=== PATIENT | male | born 1975 | race Caucasian/White ===

== ENCOUNTER 2019-10-15 21:00 | Emergency (ER) | payer OTHER, SELFPAY ==
--- NOTE | ~2019-10-15 | XR_ITS ---
EXAMINATION: XR foot LT min 3V EXAM DATE: 10/15/2019 21:25 INDICATION: Left foot, first metatarsal pain. No known recent injury. Surgery 10 years ago. TECHNIQUE: Left foot dorsoplantar, lateral and oblique projections obtained and reviewed. There is n o prior study for comparison. FINDINGS: Left metatarsal bones unremarkable. There are no acute fractures or dislocations identifi ed. There is no subcutaneous gas. The soft tissue is unremarkable. Surgical change, probable buni onectomy. There is a screw in the first metatarsal bone, with about 1 mm smooth uniform lucency surro unding it, could indicate some loosening. Infected hardware not entirely excludable. IMPRESSION: Surgical changes from left-sided bunionectomy with uniform thin lucency surrounding the f irst metatarsal screw, may indicate loosening but infection not entirely excludable. Follow-up can be obtained if symptoms persist. Reviewed, dictated and finalized at location A. IMPRESSION: Surgical changes from left-sided bunionectomy with uniform thin sidra ency surrounding the first metatarsal screw, may indicate loosening but infecti on not entirely excludable. Follow-up can be obtained if symptoms persist.
[2019-10-15 21:09] VITALS: BP 113/91; PULSE 92; RESP 16; TEMP 36.7; O2SAT 100
--- NOTE | 2019-10-15 21:35 | ED.LOWEXIN ---
HPI - Extremity Injury (Lower) General Chief Complaint: Extremity Injury, Lower Stated Complaint: toe pain Time Seen by Provider: 10/15/19 21:33 Source: patient Mode of arrival: ambulatory Limitations: no limitations History of Present Illness HPI Narrative: A 44 y/o male presents to the ED with c/o left foot pain and swelling. Pt states that the left foot pain started 2 days ago and worsened at 1400 today. He describes the pain as a pulsating. Pt does not note any fall or injury that could have caused the left foot swelling and pain. He denies fever, numbness, and rash and has a PMHx of gout and left foot surgery. Pt took Indomethacin for the left foot pain and swelling with no relief. MD complaint: foot injury (Left pain and swelling) Onset (ago): day(s) (2) Injury: Left: foot Associated symptoms: swelling Other symptoms: none Treatments prior to arrival: other (Indomethacin) Related Data Allergies Allergy/AdvReac Type Severity Reaction Status Date / Time PANTOPRAZOLE SODIUM Allergy Severe Anaphylactic Uncoded 10/15/19 21:32 Shock Review of Systems Review of Systems: Narrative: CONSTITUTIONAL: Denies fever, chills, or sweats. SKIN: Denies rash or itching. MUSCULOSKELETAL: Denies back pain, joint pain, or myalgia. Reports left foot pain and swelling. NEUROLOGIC: Denies headache, numbness, or weakness. All systems reviewed & are unremarkable except as noted in HPI and below PMFSH Past Medical History Medical History (Updated 10/15/19 @ 23:32 by Yari Miller MD) Anxiety Back injury Bipolar disorder Cellulitis Chronic back pain Diverticulitis Gout HTN (hypertension) Hyperlipidemia Migraine MRSA (methicillin resistant Staphylococcus aureus) Renal cell carcinoma Sleep apnea Uses continuous positive airway pressure (CPAP) ventilation at home Surgical History Surgical History (Updated 10/15/19 @ 21:49 by Audra Barrett) H/O right nephrectomy History of foot surgery Left Social History Social History (Updated 10/15/19 @ 21:50 by Audra Barrett) Smoking status: Never smoker Second hand tobacco smoke exposure: Yes Gender identity (if verbalized by the patient): Male Exam Narrative: Exam Narrative: GENERAL: Anxious-appearing, well-nourished, and in no acute distress. HEAD: Normocephalic, atraumatic. EYES: PERRLA and EOMI. ENT: Nares clear, no rhinorrhea or epistaxis. Mucous membranes moist. NECK: Supple. CHEST: Clear to auscultation. No respiratory distress. HEART: Regular rate and rhythm. No murmur heard. Normal peripheral pulses. ABDOMEN: Soft, nontender, nondistended, normal active bowel sounds. EXTREMITIES: Normal range of motion. Mild edema over first metatarsal of the left foot, no erythema or warmth. Intact well healed surgical site over first metatarsal. Dorsal pedal pulses 2+. SKIN: Warm, dry, no rash. NEURO: No focal deficits. Alert and oriented X3. Course Course Emergency Course: Patient presented for evaluation of atraumatic foot pain over the metatarsal of the left foot. Patient with very mild to minimal edema, no erythema no warmth. Patient has history of surgery in this joint space as well as gout. X-ray shows possible lucency about the screw that may be indicative of an infection, however patient's inflammatory markers are normal. No leukocytosis, elevation in ESR CRP. Patient continues to have issues with pain control, and in the past when he has been here for musculoskeletal complaints, also has issues with pain control. At this point, I believe we can trial patient on outpatient antibiotics if this were an early intra-articular infection of the first metatarsal joint, patient would benefit from antibiotics. Given absence of other clinical symptoms of this, I do not feel patient needs to be admitted for arthrocentesis of this joint area. Patient will be given follow-up with on-call orthopedic DrRowdy Cheatham. He was discharged home in stable condition. Vital Signs Vital signs: Vit
[2019-10-15 22:03] LABS: Basophils Percent Auto 0.3 % (0.2-1.2); Eosinophils Absolute Auto 0.1 K/mm3 (0-0.3); Hematocrit 41.2 % (42.0-52.0); Hemoglobin 13.3 g/dL (14.0-18.0); Immature Granulocyte Absolute 0.08 K/mm3 (0.00-0.031); Immature Granulocyte Percent A 1.1 % (0-0.5); Lymphocytes Absolute Auto 2.71 K/mm3 (0.9-3.2); Lymphocytes Percent Auto 38.1 % (18.3-44.2); Mean Corpuscular HGB Conc 32.3 g/dl (32-36); Mean Corpuscular Hemoglobin 29.2 pg (26-34); Mean Corpuscular Volume 90.4 fl (80-100); Mean Platelet Volume 8.6 fl (7.4-10.4); Monocytes Absolute Auto 0.6 K/mm3 (0.1-0.6); Neutrophils Absolute Auto 3.6 K/mm3 (1.3-6.7); Neutrophils Percent Auto 50.5 % (45.5-73.1); Platelet Count Result 264 k/mm3 (150-375); Red Blood Count 4.56 M/mm3 (4.6-6.20); Red Cell Distribution Width 14.4 % (11.5-14.5); White Blood Count 7.1 K/mm3 (4.5-10.0)
[2019-10-15] MEDS: MORPHINE SULFATE 4 MG/ML INJ IV PUSH (22:03)
[2019-10-15] MEDS: ONDANSETRON INJ 4 MG/2 ML VIAL IV PUSH (22:03)
[2019-10-15 22:17] LABS: Blood Urea Nitrogen 16 mg/dL (9-20); CRP < 0.5 mg/dL (<1.0); Carbon Dioxide 25 mmol/L (22-30); Chloride 103 mmol/L (98-107); Estimated CRCL calculation 67 ml/min; Estimated Glomerular Filt Rate 60; Glucose 129 mg/dL (75-110); Potassium 4.7 mmol/L (3.4-5.0); Sodium 136 mmol/L (137-145); Uric Acid 6.2 mg/dL (3.5-8.5)
[2019-10-15 22:30] LABS: Erythrocyte Sedimentation Rate 16 mm/hr (0-20)
[2019-10-15 22:53] VITALS: BP 138/101; PULSE 83; RESP 16; TEMP 36.7
== END 2019-10-15 23:49 | disposition home or self-care (01) ==
PROVIDERS: Emergency Provider Emergency Medicine; PCP Family Medicine
DX: M79.672 Pain in left foot (principal); Z90.5 Acquired absence of kidney; Z85.528 Personal history of other malignant neoplasm of kidney; M10.9 Gout, unspecified; I10 Essential (primary) hypertension; E78.5 Hyperlipidemia, unspecified; Z86.14 Personal history of Methicillin resistant Staphylococcus aureus infection; G47.30 Sleep apnea, unspecified
CPT/HCPCS: 36415; 73630; 80048; 84550; 85025; 85652; 86140; 96374; 96375; 99284; A9270; J2270; J2405

== ENCOUNTER 2020-01-17 18:46 | Emergency (ER) | payer OTHER, SELFPAY ==
[2020-01-17 18:50] VITALS: BP 130/89; PULSE 123; RESP 18; TEMP 36.4; O2SAT 99
--- NOTE | 2020-01-17 19:32 | ED.GENADULT ---
HPI - General Adult General Chief complaint: Extremity Injury, Lower <EMILIE Mcallister Last Filed: 01/17/20 19:46> Stated complaint: post op check, sx this AM on foot <EMILIE Mcallister Last Filed: 01/17/20 19:46> Time Seen by Provider: 01/17/20 19:14 <EMILIE Mcallister Last Filed: 01/17/20 19:46> Source: patient <EMILIE Mcallister Last Filed: 01/17/20 19:46> Mode of arrival: ambulatory <EMILIE Mcallister Last Filed: 01/17/20 19:46> Limitations: no limitations <EMILIE Mcallister Last Filed: 01/17/20 19:46> History of Present Illness HPI narrative: patient is a 44-year-old male who presents of burning of the left foot noting that he had a screw removed from the left forefoot patient had the procedure performed by podiatry patient notes since he has had burning involving the second and first digits and into the forefoot bottom of the foot patient was prescribed hydrocodone and has been taking it with minimal improvement. Patient denies other complaints denies any injury URI symptoms <EMILIE Mcallister Last Filed: 01/17/20 19:46> Related Data Home medications: Home Medications Medication Instructions Recorded Confirmed alprazolam 1 mg PO QID 01/17/20 cephalexin 500 mg PO BID 01/17/20 dextroamphetamine-amphetamine 30 mg PO BID 01/17/20 lisinopril 20 mg PO HS 01/17/20 sumatriptan succinate 100 mg PO DAILY 01/17/20 venlafaxine 37.5 mg PO HS 01/17/20 01/17/20 <EMILIE Mcallister Last Filed: 01/17/20 19:46> Allergies/adverse reactions: Allergies Allergy/AdvReac Type Severity Reaction Status Date / Time pantoprazole Allergy Severe Anaphylactic Verified 01/17/20 19:47 Shock <EMILIE Mcallister Last Filed: 01/17/20 19:46> Review of Systems Review of Systems: All systems reviewed & are unremarkable except as noted in HPI and below <EMILIE Mcallister Last Filed: 01/17/20 19:46> [facility] Past Medical History Medical History: Medical History Anxiety Back injury Bipolar disorder Cellulitis Chronic back pain Diverticulitis Gout HTN (hypertension) Hyperlipidemia Migraine MRSA (methicillin resistant Staphylococcus aureus) Renal cell carcinoma Sleep apnea Turf toe Uses continuous positive airway pressure (CPAP) ventilation at home <EMILIE Mcallister Last Filed: 01/17/20 19:46> Surgical History Surgical History: Surgical History H/O right nephrectomy History of foot surgery Left <EMILIE Mcallister Last Filed: 01/17/20 19:46> Social History Social History: Social History Smoking status: Never smoker Second hand tobacco smoke exposure: Yes Gender identity (if verbalized by the patient): Male <EMILIE Mcallister Last Filed: 01/17/20 19:46> Exam Narrative: Exam Narrative: GENERAL: Well-appearing, well-nourished, and in no acute distress. HEAD: Normocephalic, atraumatic. EYES: PERRLA and EOMI. ENT: Nares clear, no rhinorrhea or epistaxis. Mucous membranes moist. EXTREMITIES: Normal range of motion. No edema. Patient's dressings were removed tissues are pink and viable patient has slight contusion over the surgical site without erythema drainage. SKIN: Warm, dry, no rash. NEURO: No focal deficits. Alert and oriented x3. Cranial nerves II through XII grossly intact. Neurovascularly intact. Capillary refill less than 2 seconds PSYCH: Normal mood and affect. <EMILIE Mcallister Last Filed: 01/17/20 19:46> Course Course Emergency Course: Patient in the room aware of case findings treatment plan and diagnosis will be discharged home advised to follow with his specialist <Sarthak Manriquez PA-C - Last Filed: 01/17/20 19:46> Consultations Consultation #1:
[2020-01-17] MEDS: DIAZEPAM 5 MG TABLET PO (20:16)
[2020-01-17 20:50] VITALS: BP 128/88; PULSE 110; RESP 20; O2SAT 100
== END 2020-01-17 20:40 | disposition home or self-care (01) ==
PROVIDERS: Emergency Provider Emergency Medicine; PCP Family Medicine
DX: G89.18 Other acute postprocedural pain (principal); M79.672 Pain in left foot; F41.9 Anxiety disorder, unspecified; F31.9 Bipolar disorder, unspecified; M10.9 Gout, unspecified; I10 Essential (primary) hypertension; E78.5 Hyperlipidemia, unspecified; Z86.14 Personal history of Methicillin resistant Staphylococcus aureus infection; Z85.528 Personal history of other malignant neoplasm of kidney; Z90.5 Acquired absence of kidney
CPT/HCPCS: 99283; A9270

== ENCOUNTER 2020-01-26 19:21 | Observation (INO) | payer OTHER, SELFPAY ==
[2020-01-26] VITALS (12 sets, daily range): BP systolic 95–147; BP diastolic 70–84; PULSE 105–128; RESP 14–25; TEMP 36.3–37.5; O2SAT 96–100; BMI 33.8
--- NOTE | ~2020-01-26 | XR_ITS ---
EXAMINATION: XR ankle RT min 3V DATE: 01/26/2020 19:50 INDICATION: Right ankle swelling, warmth and erythema post surgery 9 days prior. TECHNIQUE: Anteroposterior, oblique, mortise, and lateral views of the right ankle were obtained. COMPARISON: 05/10/2019 FINDINGS: Alignment is normal. No fracture. Joint spaces are normal. No cortical erosions or periosteal reactio n. Prominent soft tissue swelling centered over the lateral malleolus. No right ankle joint effusion. Small plantar calcaneal spur. No radiopaque foreign bodies. IMPRESSION: 1. No right ankle joint effusion or osseous abnormality. Reviewed, dictated and finalized at location A.
--- NOTE | 2020-01-26 19:45 | ED.LOWEXIN ---
HPI - Extremity Injury (Lower) General Chief Complaint: Extremity Injury, Lower <EMILIE Mcallister Last Filed: 01/26/20 20:50> Stated Complaint: I HAVE A FOOT INFECTION <EMILIE Mcallister Last Filed: 01/26/20 20:50> Time Seen by Provider: 01/26/20 19:29 <EMILIE Mcallister Last Filed: 01/26/20 20:50> Source: patient <EMILIE Mcallister Last Filed: 01/26/20 20:50> Mode of arrival: ambulatory <EMILIE Mcallister Last Filed: 01/26/20 20:50> Limitations: no limitations <EMILIE Mcallister Last Filed: 01/26/20 20:50> History of Present Illness HPI Narrative: Patient is a 44-year-old male who presents to emergency department for evaluation of right ankle pain and swelling noting red tender warm right ankle denies injury or trauma. Patient does note history of gout and cellulitis patient on arrival denies any fever has not taken anything for his symptoms was on amoxicillin until a day ago for a left foot surgery patient on arrival per private vehicle is resting comfortably in the room in no distress pain is worse with activity and movement <EMILIE Mcallister Last Filed: 01/26/20 20:50> Related Data Home Medications: Home Medications Medication Instructions Recorded Confirmed alprazolam 1 mg PO QID 01/17/20 01/26/20 dextroamphetamine-amphetamine 30 mg PO BID 01/17/20 01/26/20 lisinopril 20 mg PO HS 01/17/20 01/26/20 sumatriptan succinate 100 mg PO DAILY PRN 01/17/20 01/26/20 venlafaxine 37.5 mg PO HS 01/17/20 01/26/20 <EMILIE Mcallister Last Filed: 01/26/20 20:50> Allergies/Adverse Reactions: Allergies Allergy/AdvReac Type Severity Reaction Status Date / Time pantoprazole Allergy Severe Anaphylactic Verified 01/26/20 19:35 Shock <EMILIE Mcallister Last Filed: 01/26/20 20:50> Review of Systems Review of Systems: All systems reviewed & are unremarkable except as noted in HPI and below <Sarthak Manriquez PA-C - Last Filed: 01/26/20 20:50> PMFSH Past Medical History Medical History: Medical History Anxiety Back injury Bipolar disorder Cellulitis Chronic back pain Diverticulitis Gout HTN (hypertension) Hyperlipidemia Migraine MRSA (methicillin resistant Staphylococcus aureus) Renal cell carcinoma Sleep apnea Turf toe Uses continuous positive airway pressure (CPAP) ventilation at home <Sarthak Manriquez PA-C - Last Filed: 01/26/20 20:50> Surgical History Surgical History: Surgical History H/O right nephrectomy History of foot surgery Left <Sarthak Manriquez PA-C - Last Filed: 01/26/20 20:50> Social History Social History: Social History Smoking status: Never smoker Second hand tobacco smoke exposure: Yes Alcohol intake: never Substance use: never Substance use type: does not use Gender identity (if verbalized by the patient): Male Spiritual care concerns: No <EMILIE Mcallister Last Filed: 01/26/20 20:50> Exam Narrative: Exam Narrative: GENERAL: Well-appearing, well-nourished, and in no acute distress. HEAD: Normocephalic, atraumatic. EYES: PERRLA and EOMI. ENT: Nares clear, no rhinorrhea or epistaxis. Mucous membranes moist. CHEST: Clear to auscultation. No respiratory distress. No wheezes rales or rhonchi HEART: Regular rate and rhythm. No murmur heard. Normal peripheral pulses. EXTREMITIES: Red tender swollen right ankle with warmth to touch no fluctuance no lymphangitic streaking no wounds SKIN: Warm, dry, no rash. NEURO: No focal deficits. Alert and oriented x3. Cranial nerves II through XII grossly intact he has a small. Neurovascularly intact PSYCH: Normal mood and affect. <EMILIE Mcallister Last Filed: 01/26/20 20:50> Course X [employer]AY TECHNOLOGIST/PA Physician Supervision For this
[2020-01-26] MEDS: SODIUM CHLORIDE 0.9% IV 1,000 ML 999 ML IV CONT (19:50)
[2020-01-26 20:02] LABS: Basophils Percent Auto 0.1 % (0.2-1.2); Eosinophils Percent Auto 0.5 % (0-4.4); Hematocrit 33.1 % (42.0-52.0); Hemoglobin 11.2 g/dL (14.0-18.0); Immature Granulocyte Absolute 0.03 K/mm3 (0.00-0.031); Immature Granulocyte Percent A 0.4 % (0-0.5); Lymphocytes Percent Auto 15.8 % (18.3-44.2); Mean Corpuscular HGB Conc 33.8 g/dl (32-36); Mean Corpuscular Hemoglobin 29.6 pg (26-34); Mean Corpuscular Volume 87.6 fl (80-100); Mean Platelet Volume 8.2 fl (7.4-10.4); Monocytes Absolute Auto 0.5 K/mm3 (0.1-0.6); Monocytes Percent Auto 7.1 % (2.6-8.5); Neutrophils Absolute Auto 5.8 K/mm3 (1.3-6.7); Neutrophils Percent Auto 76.1 % (45.5-73.1); Platelet Count Result 273 k/mm3 (150-375); Red Blood Count 3.78 M/mm3 (4.6-6.20); Red Cell Distribution Width 15.6 % (11.5-14.5); White Blood Count 7.6 K/mm3 (4.5-10.0)
[2020-01-26 20:16] LABS: Lactic Acid Reflex 1.5 mmol/L (0.7-2.1)
[2020-01-26 20:17] LABS: Alanine Aminotransferase 25 U/L (4-50); Albumin Level 4.5 g/dL (3.5-5.1); Alkaline Phosphatase 60 U/L (38-126); Aspartate Amino Transferase 35 U/L (17-59); Bilirubin,Total 0.6 mg/dL (0.2-1.3); Blood Urea Nitrogen 19 mg/dL (9-20); CRP 8.4 mg/dL (<1.0); Calcium 8.8 mg/dL (8.4-10.2); Carbon Dioxide 23 mmol/L (22-30); Chloride 101 mmol/L (98-107); Estimated Glomerular Filt Rate 51; Glucose 162 mg/dL (75-110); Potassium 3.4 mmol/L (3.4-5.0); Sodium 135 mmol/L (137-145)
[2020-01-26 20:45] LABS: Erythrocyte Sedimentation Rate 67 mm/hr (0-20)
[2020-01-26] MEDS: LORAZEPAM INJ 2 MG/ML VIAL 1 MG IV PUSH (20:47)
[2020-01-26] MEDS: COLCHICINE 0.6 MG TABLET 1.2 MG PO (20:47)
[2020-01-26] MEDS: ceFAZolin 2 GM/D5W 50 ML 2 GM/50 ML BAG IVPB (21:04)
--- NOTE | 2020-01-26 21:29 | PM.IMHP ---
H&P: HPI History of Present Illness Chief complaint: Celllitis right leg Narrative: Raúl Macias is a 44 year old male with known history of anxiety and gout presented to the hospital with a complaint of right ankle redness and pain that started earlier today. He denies any trauma to his right ankle. The patient believes that this is the beginning of another bout of cellulitis as he has had episodes of cellulitis like this before. The patient has not had any treatment for his ankle redness. He was evaluated in the ER tonight and routine labs were obtained. He was found to be tachycardia. He denies any other symptoms at this time. The patient is known to recently have had surgery to his left foot to have screws removed. He denies any fever but did have fever in the ER. Review of Systems Review of Systems: All systems reviewed & are unremarkable except as noted in HPI and below PMFSH Past Medical History Medical History Anxiety Back injury Bipolar disorder Cellulitis Chronic back pain Diverticulitis Gout HTN (hypertension) Hyperlipidemia Migraine MRSA (methicillin resistant Staphylococcus aureus) Renal cell carcinoma Sleep apnea Turf toe Uses continuous positive airway pressure (CPAP) ventilation at home Surgical History Surgical History H/O right nephrectomy History of foot surgery Left Social History Social History Smoking status: Never smoker Second hand tobacco smoke exposure: Yes Alcohol intake: never Substance use: never Substance use type: does not use Gender identity (if verbalized by the patient): Male Spiritual care concerns: No Meds Home Medications and Allergies Home Medications Medication Instructions Recorded Confirmed Type alprazolam 1 mg PO QID 01/17/20 01/26/20 History dextroamphetamine-amphetamine 30 mg PO BID 01/17/20 01/26/20 History lisinopril 20 mg PO HS 01/17/20 01/26/20 History sumatriptan succinate 100 mg PO DAILY PRN 01/17/20 01/26/20 History venlafaxine 37.5 mg PO HS 01/17/20 01/26/20 History cephalexin 500 mg PO Q12H 6 Days #12 cap 01/28/20 Rx colchicine [Colcrys] 0.6 mg PO Q12HR 3 Days #6 tablet 01/28/20 Rx Allergies Allergy/AdvReac Type Severity Reaction Status Date / Time pantoprazole Allergy Severe Anaphylactic Verified 01/26/20 19:35 Shock Vital Signs Vital Signs - 24 hr 01/26/20 19:29 01/26/20 19:45 01/26/20 19:46 Temperature 37.1 C Pulse Rate 128 H 125 H 126 H Respiratory Rate 20 20 Blood Pressure 143/77 H 123/70 Pulse Oximetry 98 01/26/20 20:17 01/26/20 20:38 01/26/20 20:39 Temperature Pulse Rate 122 H 126 H Respiratory Rate 20 22 H Blood Pressure Pulse Oximetry 100 97 96 01/26/20 20:46 01/26/20 21:01 01/26/20 21:12 Temperature 37.5 C Pulse Rate 123 H 120 H Respiratory Rate 14 25 H Blood Pressure 95/73 L Pulse Oximetry 98 97 Exam Const: General: cooperative, alert, awake and other (febrile to touch) Nutritional Appearance: obese Orientation/consciousness: patient oriented x3 HENMT: Head: normal to inspection General nose exam: Normal external nose present Face and sinus: normal facial exam Mouth: Yes Normal oral and palatal mucosa present and Yes oropharynx normal Eyes: Pupils: Equal, round and reactive pupils present EOM: EOMs intact bilaterally Neck: Neck: supple and no JVD Thyroid: thyroid normal Lymphatic: lymphadenopathy not noted Resp: Effort & Inspection: normal respiratory effort Auscultation: clear to auscultation bilaterally Cardio: Rate: regular rate Rhythm: regular rhythm Heart sounds: no murmurs GI: Inspection: normal to inspection Auscultation: normal bowel sounds Skin: General skin exam: normal color and no rashes or lesions noted Neuro: General: patient oriented x3 Cranial nerves: Yes CN's II-XII intac
--- NOTE | 2020-01-26 21:32 | PC.NURSE ---
Report to Jena, 3rd RN
[2020-01-26] MEDS: LACTATED RINGERS 1,000 ML 125 ML IV CONT (21:52)
[2020-01-26] MEDS: FAMOTIDINE 20 MG/2 ML VIAL IV PUSH (21:53)
--- NOTE | 2020-01-26 22:00 | PC.NURSE ---
pt. refused to change into a gown in ED; instructed pt. 3x to wear face mask while going to inpt. room
--- NOTE | 2020-01-26 22:02 | ECG_ITS ---
Measurements Intervals [place] Rate: 104 P: 52 ND: 144 QRS: 20 QRSD: 113 T: 21 QT: 346 QTc: 456 Interpretive Statements SINUS TACHYCARDIA INTRAVENTRICULAR CONDUCTION DELAY BORDERLINE ECG Electronically Signed On 01-27-2020 7:04:39 CDT by Narinder Llanos D.O.
[2020-01-26] MEDS: lisinopriL 20 MG TABLET PO (23:19)
[2020-01-26] MEDS: ALPRAZOLAM 0.5 MG TABLET 1 MG PO (23:19)
[2020-01-27 04:44] VITALS: BP 123/76; PULSE 77; RESP 18; TEMP 36.6; O2SAT 98
[2020-01-27] MEDS: LACTATED RINGERS 1,000 ML 125 ML IV CONT (06:07)
[2020-01-27 06:36] LABS: Hematocrit 34.3 % (42.0-52.0); Hemoglobin 11.1 g/dL (14.0-18.0); Immature Granulocyte Absolute 0.03 K/mm3 (0.00-0.031); Immature Granulocyte Percent A 0.7 % (0-0.5); Lymphocytes Absolute Auto 0.63 K/mm3 (0.9-3.2); Lymphocytes Percent Auto 15.3 % (18.3-44.2); Mean Corpuscular HGB Conc 32.4 g/dl (32-36); Mean Corpuscular Volume 89.6 fl (80-100); Mean Platelet Volume 8.4 fl (7.4-10.4); Monocytes Absolute Auto 0.1 K/mm3 (0.1-0.6); Monocytes Percent Auto 3.1 % (2.6-8.5); Neutrophils Absolute Auto 3.3 K/mm3 (1.3-6.7); Neutrophils Percent Auto 80.9 % (45.5-73.1); Platelet Count Result 297 k/mm3 (150-375); Red Blood Count 3.83 M/mm3 (4.6-6.20); Red Cell Distribution Width 15.7 % (11.5-14.5); White Blood Count 4.1 K/mm3 (4.5-10.0)
[2020-01-27 07:01] LABS: Blood Urea Nitrogen 16 mg/dL (9-20); Calcium 8.6 mg/dL (8.4-10.2); Carbon Dioxide 27 mmol/L (22-30); Chloride 104 mmol/L (98-107); Estimated CRCL calculation 77 ml/min; Estimated Glomerular Filt Rate > 60; Glucose 151 mg/dL (75-110); Potassium 4.1 mmol/L (3.4-5.0); Sodium 137 mmol/L (137-145)
[2020-01-27 08:00] VITALS: PULSE 85; RESP 18; O2SAT 98
[2020-01-27] MEDS: FAMOTIDINE 20 MG/2 ML VIAL IV PUSH ×2 (08:25→22:06)
[2020-01-27] MEDS: ENOXAPARIN 40 MG/0.4 ML SYRINGE SUB-Q (08:25)
[2020-01-27] MEDS: ALPRAZOLAM 0.5 MG TABLET 1 MG PO ×3 (08:33→22:06)
[2020-01-27 10:17] VITALS: BP 160/83; PULSE 85
--- NOTE | 2020-01-27 11:39 | PCRCNOTE ---
Talked with patient about home CPAP/BiPAP unit. Pt states he has one but has not worn it for a long time. He does not want to wear one of our either. Discussed the benefits of wearing CPAP/BiPAP, pt still does not want to wear.
--- NOTE | 2020-01-27 12:33 | PM.IMPN ---
Progress Note: A&P Assessment and Plan (1) Cellulitis of leg, right: Code(s): L03.115 - Cellulitis of right lower limb Status: Acute Assessment and Plan: The patient reports that this episodes feels similar to his previous episodes of cellulitis. He does not have any abrasions or wounds on the surrounding skin. He does have two areas of very minimally blanching erythema on the medial and lateral malleoli which appear more like a pressure injury. There is very mild surrounding blanching erythema which appears to be improving. I observed him with the left leg over the right ankle during my visit and I discussed that the dark minimally blanching areas appear to be pressure-induced. Plan to continue IV cefazolin. Continue to monitor. I anticipate that he should be able to discharge home tomorrow on a PO regimen. (2) Gout: Qualifiers: Chronicity: acute Gout etiology: unspecified cause Gout site: ankle Laterality: right Qualified Code(s): M10.9 - Gout, unspecified Code(s): M10.9 - Gout, unspecified Status: Acute Assessment and Plan: Uric acid was elevated at 11.0. The patient reports severe 9-10/10 pain, swelling, and erythema yesterday. His pain was so severe that he could barely ambulate due to the pain. He reports it was severely tender to touch and this has resolved. His clinical description suggests an acute gout flare. He has a hx of gout. CRP and ESR are elevated. He received colchicine 1.2mg in the ED as well as IV dexamethasone. Plan to continue 0.6mg colchicine BID. Will avoid prednisone due to concern for cellulitis and NSAIDs due to hx of renal cell carcinoma. (3) HTN (hypertension): Qualifiers: Hypertension type: essential hypertension Qualified Code(s): I10 - Essential (primary) hypertension Code(s): I10 - Essential (primary) hypertension Status: Chronic Assessment and Plan: Blood pressures were reviewed and he did have an elevated reading today at 160/83. His other readings are WNL. Continue lisinopril. Continue to monitor. (4) Migraine: Qualifiers: Intractability: not intractable Migraine type: unspecified Status migrainosus presence: without status migrainosus Qualified Code(s): G43.909 - Migraine, unspecified, not intractable, without status migrainosus Code(s): G43.909 - Migraine, unspecified, not intractable, without status migrainosus Status: Chronic Assessment and Plan: Chronic. Continue sumatriptan succinate PRN. (5) Anxiety: Code(s): F41.9 - Anxiety disorder, unspecified Status: Chronic Assessment and Plan: Chronic. Continue venlafaxine and alprazolam PRN. (6) History of foot surgery: Code(s): Z98.890 - Other specified postprocedural states Status: Acute Assessment and Plan: He reports a left foot surgery for hardware removal 01/17/20. He has no concerns from this standpoint. His incision is well-approximated with sutures without evidence of surrounding infection. Continue follow-up with podiatry for post-op care and suture removal. Continue daily dressing changes. (7) Sleep apnea: Code(s): G47.30 - Sleep apnea, unspecified Status: Acute Assessment and Plan: Continue CPAP, titrate to home settings. (8) DVT prophylaxis: Code(s): Z29.9 - Encounter for prophylactic measures, unspecified Status: Acute Assessment and Plan: Lovenox SQ. Time Spent With Patient Time with patient: 15 - 25 minutes Subjective Date/time seen: 01/27/20 12:33 Interval history: Mr. Macias is seen and examined at bedside in follow-up for cellulitis. He reports that he is feeling significantly better today. He reports that his pain was 9-10/10 yesterday and is only 3/10. He notes that the area was severely tender to touch and he could barely ambulate due to the pain. He reports that the swelling and eryth
[2020-01-27 14:00] VITALS: BP 104/85; PULSE 75; RESP 20; TEMP 36.4; O2SAT 98
[2020-01-27] MEDS: COLCHICINE 0.6 MG TABLET PO ×2 (14:18→22:05)
[2020-01-27 21:38] VITALS: BP 128/73; PULSE 103; RESP 20; TEMP 36.1; O2SAT 99
[2020-01-27] MEDS: lisinopriL 20 MG TABLET PO (22:06)
[2020-01-28 05:44] VITALS: BP 131/92; PULSE 82; RESP 18; TEMP 35.8; O2SAT 100
[2020-01-28 06:21] LABS: Basophils Percent Auto 0.1 % (0.2-1.2); Eosinophils Percent Auto 0.1 % (0-4.4); Hematocrit 32.6 % (42.0-52.0); Hemoglobin 10.7 g/dL (14.0-18.0); Immature Granulocyte Absolute 0.04 K/mm3 (0.00-0.031); Immature Granulocyte Percent A 0.5 % (0-0.5); Lymphocytes Absolute Auto 1.68 K/mm3 (0.9-3.2); Lymphocytes Percent Auto 19.6 % (18.3-44.2); Mean Corpuscular HGB Conc 32.8 g/dl (32-36); Mean Corpuscular Hemoglobin 29.5 pg (26-34); Mean Corpuscular Volume 89.8 fl (80-100); Mean Platelet Volume 8.6 fl (7.4-10.4); Monocytes Absolute Auto 0.7 K/mm3 (0.1-0.6); Neutrophils Absolute Auto 6.1 K/mm3 (1.3-6.7); Neutrophils Percent Auto 71.7 % (45.5-73.1); Platelet Count Result 343 k/mm3 (150-375); Red Blood Count 3.63 M/mm3 (4.6-6.20); Red Cell Distribution Width 15.8 % (11.5-14.5); White Blood Count 8.6 K/mm3 (4.5-10.0)
[2020-01-28 06:47] LABS: Blood Urea Nitrogen 26 mg/dL (9-20); CRP 5.2 mg/dL (<1.0); Carbon Dioxide 26 mmol/L (22-30); Chloride 105 mmol/L (98-107); Estimated CRCL calculation 77 ml/min; Estimated Glomerular Filt Rate > 60; Glucose 125 mg/dL (75-110); Sodium 139 mmol/L (137-145)
[2020-01-28 07:17] LABS: Potassium 3.8 mmol/L (3.4-5.0)
[2020-01-28 07:50] LABS: Hemoglobin A1C 6.4 % (<5.7)
[2020-01-28 08:00] VITALS: PULSE 82; RESP 18; O2SAT 100
[2020-01-28] MEDS: ALPRAZOLAM 0.5 MG TABLET 1 MG PO (08:34)
[2020-01-28] MEDS: FAMOTIDINE 20 MG/2 ML VIAL IV PUSH (08:35)
[2020-01-28] MEDS: COLCHICINE 0.6 MG TABLET PO (08:35)
[2020-01-28] MEDS: ENOXAPARIN 40 MG/0.4 ML SYRINGE SUB-Q (08:35)
--- NOTE | 2020-01-28 10:55 | PM.DS ---
DS: Admitting Diagnosis Admitting Diagnosis Admitting Diagnosis: Cellulitis of right lower limb DS: Discharge Diagnosis Discharge Diagnosis (1) Cellulitis of leg, right: Code(s): L03.115 - Cellulitis of right lower limb Status: Acute (2) Gout: Qualifiers: Gout site: ankle Gout etiology: unspecified cause Chronicity: acute Laterality: right Qualified Code(s): M10.9 - Gout, unspecified Code(s): M10.9 - Gout, unspecified Status: Acute (3) HTN (hypertension): Qualifiers: Hypertension type: essential hypertension Qualified Code(s): I10 - Essential (primary) hypertension Code(s): I10 - Essential (primary) hypertension Status: Chronic (4) Migraine: Qualifiers: Migraine type: unspecified Status migrainosus presence: without status migrainosus Intractability: not intractable Qualified Code(s): G43.909 - Migraine, unspecified, not intractable, without status migrainosus Code(s): G43.909 - Migraine, unspecified, not intractable, without status migrainosus Status: Chronic (5) Anxiety: Code(s): F41.9 - Anxiety disorder, unspecified Status: Chronic (6) History of foot surgery: Code(s): Z98.890 - Other specified postprocedural states Status: Acute (7) Sleep apnea: Code(s): G47.30 - Sleep apnea, unspecified Status: Acute DS: Summary Hospital Course Reason for hospitalization: Right ankle pain, swelling, and erythema Hospital Course: Mr. Macias is a 44 y.o. male with PMH significant for gout, hx of right nephrectomy due to renal cell carcinoma, bipolar disorder, cellulitis, anxiety, hypertension, and migraines who presented to the emergency department via private vehicle for the evaluation of right ankle pain, swelling, and erythema. His reported that his pain was so severe that he could barely ambulate due to the pain. He reports it was severely tender to touch. He had no hx of trauma or injury. He was previously on amoxicillin following his left foot surgery. Initial workup in the ED revealed WBC 7,600 with a neutrophil predominance, Hb 11.2, Hct 33.1, sodium 135, Cr 1.5, BUN 19. Uric acid was elevated at 11. ESR and CRP were elevated at 67 and 8.4 respectively. Right ankle xray revealed no right ankle effusion or osseous abnormality. In the ED, he was treated with analgesics PRN, colchicine and IV dexamethasone for gout, and IV cefazolin for cellulitis. NSAIDs were avoided for acute gout due to his hx of renal disease and prednisone was avoided due to concern for cellulitis. He was admitted to the hospitalist service for further evaluation and treatment. His pain improved significantly the following day which suggested that his symptoms were more likely due to gout. His erythema also improved and swelling was minimal. There were two areas of very minimally blanching erythema on the medial and lateral malleoli which appeared more like a pressure injury than cellulitis as I observed him sitting with his left leg over the right one applying pressure to those areas during my interview. I advised that he should avoid pressure to this area as that can cause ulceration. The mild surrounding erythema resolved. He was feeling much better and requested to go home. He was discharged on PO colchicine and cephalexin. He was discharged in stable condition on the afternoon of 01/28/20. 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 I also discussed that I recommended he try to cut down on his xanax usage and he verbalized that he is trying to at this time. Status at Discharge Functional status at discharge: independent ambulation Overall status at discharge: patient is back to baseline Time Spent with Patient Time attestation: Total time spent providing and/or coordinating discharge services: 35 minutes Exam Narrative: Exam Narrative: Vitals at presentation: Temp Pulse Resp
== END 2020-01-28 13:15 | disposition home or self-care (01) ==
LOC: ANHED 20:56 → ANH3MED 01-27 06:57
PROVIDERS: Emergency Medicine Emergency Medical Services; Admitting Provider Family Medicine; Emergency Provider General Practice; PCP Family Medicine; Visit Provider Physician Assistant
DX: L03.115 Cellulitis of right lower limb (principal); M10.9 Gout, unspecified; I10 Essential (primary) hypertension; G43.909 Migraine, unspecified, not intractable, without status migrainosus; F41.9 Anxiety disorder, unspecified; F31.9 Bipolar disorder, unspecified; G47.30 Sleep apnea, unspecified; Z86.14 Personal history of Methicillin resistant Staphylococcus aureus infection; Z79.899 Other long term (current) drug therapy; Z85.528 Personal history of other malignant neoplasm of kidney; Z90.5 Acquired absence of kidney; Z98.890 Other specified postprocedural states
CPT/HCPCS: 36415; 73610; 80048; 80053; 83036; 83605; 84550; 85025; 85652; 86140; 87040; 93005; 96361; 96365; 96372; 96375; 96376; 99285; A9270; G0378; G0379; J0131; J0690; J1100; J1650; J2060; J7030; J7120

== ENCOUNTER 2020-03-15 04:31 | Emergency (ER) | payer OTHER, SELFPAY ==
[2020-03-15 04:34] VITALS: BP 109/74; PULSE 120; RESP 20; TEMP 36.2; O2SAT 98
--- NOTE | 2020-03-15 05:01 | ED.EXTPRO ---
HPI - Extremity Problem General Chief complaint: Extremity Problem,Nontraumatic Stated complaint: foot swelling Time Seen by Provider: 03/15/20 04:40 History of Present Illness HPI Narrative: Swelling, redness, and pain in the left foot for 2 days. He has had the same thing multiple times in the past. He was treated for cellulitis. He reports that he has a cabinet full of antibiotics at home because the pills never work for him. No fever. Related Data Home Medications Medication Instructions Recorded Confirmed alprazolam 1 mg PO QID 01/17/20 01/26/20 dextroamphetamine-amphetamine 30 mg PO BID 01/17/20 01/26/20 lisinopril 20 mg PO HS 01/17/20 01/26/20 sumatriptan succinate 100 mg PO DAILY PRN 01/17/20 01/26/20 venlafaxine 37.5 mg PO HS 01/17/20 01/26/20 Allergies Allergy/AdvReac Type Severity Reaction Status Date / Time pantoprazole Allergy Severe Anaphylactic Verified 03/15/20 05:29 Shock Review of Systems Review of Systems: All systems reviewed & are unremarkable except as noted in HPI and below Constitutional: Constitutional: Denies chills and Denies fever(s) Cardiovascular: Cardiovascular: Denies chest pain Respiratory: Respiratory: Denies dyspnea Gastrointestinal: Gastrointestinal: Denies nausea and Denies vomiting Integumentary/Breasts: Skin/Breast: Denies skin ulcer Neurologic: Denies dizziness and Denies weakness PMFSH Past Medical History Medical History Anxiety Back injury Bipolar disorder Cellulitis Chronic back pain Diverticulitis Gout HTN (hypertension) Hyperlipidemia Migraine MRSA (methicillin resistant Staphylococcus aureus) Renal cell carcinoma Sleep apnea Turf toe Uses continuous positive airway pressure (CPAP) ventilation at home Surgical History Surgical History H/O right nephrectomy History of foot surgery Left Social History Social History Smoking status: Never smoker Second hand tobacco smoke exposure: Yes Alcohol intake: never Substance use: never Substance use type: does not use Gender identity (if verbalized by the patient): Male Spiritual care concerns: No Exam Const: General: healthy appearing, no acute distress and alert Orientation/consciousness: patient oriented x3 HENMT: Head: normal to inspection Resp: Effort & Inspection: normal respiratory effort Auscultation: clear to auscultation bilaterally Cardio: Rate: regular rate Rhythm: regular rhythm GI: GI Palp: Yes Soft to palpation and No Tenderness to palpation present (GI) Skin: Wounds: no wounds Other: mild eryhtema to left foot and ankle Neuro: General: patient oriented x3 and moves all extremities Speech: normal speech Extrem: General: edema left (foot) Other: No swelling or tenderness in the calf Course Vital Signs Vital signs: Vital Signs Temperature 36.2 C L 03/15/20 04:34 Pulse Rate 120 H 03/15/20 04:34 Respiratory Rate 20 03/15/20 04:34 Blood Pressure 109/74 03/15/20 04:34 Pulse Oximetry 98 03/15/20 04:34 Temperature 36.2 C L 03/15/20 04:34 Pulse Rate 97 03/15/20 06:36 Respiratory Rate 20 03/15/20 06:36 Blood Pressure 121/58 L 03/15/20 06:36 Pulse Oximetry 98 03/15/20 06:36 MDM - Extremity (Nontraumatic) MDM Narrative Medical decision making narrative: He appears well. Labs reassuring. He is a good candidate for a trial of outpatient treatment. Differential Diagnosis Differential diagnosis: Likely cellulitis Medical Records Attestation: I reviewed the patient's medical records. Lab Data Attestation: I reviewed the patient's lab results. Result diagrams: 03/15/20 05:21 03/15/20 05:21 Labs: Lab Results 03/15/20 03/15/20 Range/Units 05:21 05:21 WBC 7.6 (4.5-10.0) K/mm3 RBC 3.86 L (4.6-6.20) M/mm3 Hgb 11.3
[2020-03-15 05:36] LABS: Basophils Percent Auto 0.3 % (0.2-1.2); Eosinophils Absolute Auto 0.1 K/mm3 (0-0.3); Eosinophils Percent Auto 1.7 % (0-4.4); Hematocrit 34.5 % (42.0-52.0); Hemoglobin 11.3 g/dL (14.0-18.0); Immature Granulocyte Absolute 0.02 K/mm3 (0.00-0.031); Immature Granulocyte Percent A 0.3 % (0-0.5); Lymphocytes Absolute Auto 1.45 K/mm3 (0.9-3.2); Mean Corpuscular HGB Conc 32.8 g/dl (32-36); Mean Corpuscular Hemoglobin 29.3 pg (26-34); Mean Corpuscular Volume 89.4 fl (80-100); Monocytes Absolute Auto 0.7 K/mm3 (0.1-0.6); Monocytes Percent Auto 9.6 % (2.6-8.5); Neutrophils Absolute Auto 5.3 K/mm3 (1.3-6.7); Neutrophils Percent Auto 69.1 % (45.5-73.1); Platelet Count Result 261 k/mm3 (150-375); Red Blood Count 3.86 M/mm3 (4.6-6.20); Red Cell Distribution Width 14.9 % (11.5-14.5); White Blood Count 7.6 K/mm3 (4.5-10.0)
[2020-03-15 05:58] LABS: Anion Gap 13.9 mmol/L (7-16); Blood Urea Nitrogen 16 mg/dL (9-20); Calcium 8.8 mg/dL (8.4-10.2); Carbon Dioxide 24 mmol/L (22-30); Chloride 101 mmol/L (98-107); Estimated CRCL calculation 72 ml/min; Estimated Glomerular Filt Rate 60; Glucose 119 mg/dL (75-110); Potassium 3.9 mmol/L (3.4-5.0); Sodium 135 mmol/L (137-145)
[2020-03-15] MEDS: ACETAMINOPHEN 500 MG TABLET 1000 MG PO (06:05)
[2020-03-15 06:36] VITALS: BP 121/58; PULSE 97; RESP 20; O2SAT 98
[2020-03-15 06:37] LABS: Erythrocyte Sedimentation Rate 72 mm/hr (0-20)
[2020-03-15 06:56] LABS: CRP 10.2 mg/dL (<1.0)
== END 2020-03-15 07:20 | disposition home or self-care (01) ==
PROVIDERS: Emergency Provider Emergency Medicine; PCP Family Medicine
DX: L03.116 Cellulitis of left lower limb (principal); I10 Essential (primary) hypertension; M10.9 Gout, unspecified; E78.5 Hyperlipidemia, unspecified; Z86.14 Personal history of Methicillin resistant Staphylococcus aureus infection; Z85.528 Personal history of other malignant neoplasm of kidney; G47.30 Sleep apnea, unspecified; F31.9 Bipolar disorder, unspecified; F41.9 Anxiety disorder, unspecified; Z90.5 Acquired absence of kidney
CPT/HCPCS: 36415; 80048; 85025; 85652; 86140; 87040; 96365; 99284; A9270; J0690

== ENCOUNTER 2023-03-16 14:56 | Emergency (ER) | payer OTHER, SELFPAY ==
--- NOTE | ~2023-03-16 | CT_ITS ---
EXAMINATION: CT abdomen pelvis w con DATE: 03/16/2023 18:26 INDICATION: Strangulated left inguinal hernia TECHNIQUE: Computed tomography (CT) of the abdomen and pelvis was performed with 100 mL Omnipaque-350 intravenous contrast. Automated exposure control and iterative reconstruction technique were employe d. The dose-length product was 1580.72 mGy-cm. COMPARISON: 01/12/2023. FINDINGS: Lower thorax: Minimal bibasilar scar/atelectasis. Liver: Normal. Biliary/Gallbladder: Gallbladder is normal. No bile duct dilation. Pancreas: No mass or duct dilation. Spleen: Normal. Adrenals:No mass. Kidneys: No mass, stone, or hydronephrosis on the left. Surgically absent right kidney. GI tract: Mild distal esophageal and gastric wall edema. No small or large bowel dilation. Normal narendra endix. Diverticulosis without diverticulitis. Mesentery/Peritoneum: No ascites, mass, or free air. Retroperitoneum: No mass. Mild atherosclerotic abdominal aortic and/or arterial calcifications. Pelvis: Mild bladder wall thickening presumably due to outlet compromise from prostatomegaly. Thicken ing and stranding of the left spermatic cord and seminal vesicle. Soft Tissues: Bilateral fat-containing inguinal hernias. The hernia on the left is larger, with accom panying fat stranding and minimal internal fluid. Bones: No acute osseous finding. IMPRESSION: Mild esophagitis/gastritis. Moderate, inflamed, fat-containing left inguinal hernia. Inflammation also involves the left spermati c and seminal vesicle. Findings are similar to the prior examination. Reviewed, dictated and finalized at location K. IMPRESSION: Mild esophagitis/gastritis. Moderate, inflamed, fat-containing left inguinal hernia. Inflammation also invo lves the left spermatic and seminal vesicle. Findings are similar to the prior examination.
[2023-03-16 15:08] VITALS: BP 161/100; PULSE 103; RESP 16; TEMP 36.5; O2SAT 100
--- NOTE | 2023-03-16 16:23 | ED.ABDPAIN ---
HPI - Abdominal Pain General Chief Complaint: Abdominal Pain Stated Complaint: hernia discomfort Time Seen by Provider: 03/16/23 16:23 Source: patient Mode of arrival: ambulatory Limitations: no limitations History of Present Illness HPI narrative: 47 years old white male came to the emergency room with increased pain of the left inguinal area since been diagnosed over 1 month ago. Worse over the last 3 days, constant, no relieving factors, worse with any movement and activities. Patient is telling me that he is unable to get an appointment surgery. Related Data Home Medications Medication Instructions Recorded Confirmed alprazolam 1 mg tablet 1 mg PO QID 01/17/20 01/26/20 dextroamphetamine-amphetamine 30 30 mg PO BID 01/17/20 01/26/20 mg tablet lisinopril 20 mg tablet 20 mg PO HS 01/17/20 01/26/20 sumatriptan succinate 100 mg tablet 100 mg PO DAILY PRN Headache 01/17/20 01/26/20 venlafaxine 37.5 mg 37.5 mg PO HS 01/17/20 01/26/20 capsule,extended release 24 hr Allergies Allergy/AdvReac Type Severity Reaction Status Date / Time pantoprazole Allergy Severe Anaphylactic Verified 01/12/23 10:26 Shock Review of Systems Review of Systems: All systems reviewed & are unremarkable except as noted in HPI and below PMFSH Past Medical History Medical History (Updated 03/16/23 @ 19:05 by Johanna Shankar MD) Anxiety Back injury Bipolar disorder Cellulitis Chronic back pain Diverticulitis Gout HTN (hypertension) Hyperlipidemia Migraine MRSA (methicillin resistant Staphylococcus aureus) Renal cell carcinoma Sleep apnea Turf toe Uses continuous positive airway pressure (CPAP) ventilation at home Surgical History Surgical History H/O right nephrectomy History of foot surgery Left Social History Social History Smoking status: Never smoker Second hand tobacco smoke exposure: Yes Alcohol intake: never Substance use: never Substance use type: does not use Gender identity (if verbalized by the patient): Male Spiritual care concerns: No Exam Narrative: General appearance: Well-developed, well-nourished Skin: Normal color Head: Normocephalic, nontraumatic Eyes: Clear conjunctiva ENT: Oropharynx normal, ears normal, nose normal Neck: Supple, nontender Chest and respiratory: Airway patent, no respiratory distress, no accessory muscle use Heart: Regular rate/rhythm Abdomen: Soft, severe tenderness left inguinal area, severely tender, no organomegaly, quiet bowel sounds Vascular: Normal peripheral pulses, normal capillary refill. Musculoskeletal: Normal range of motion, nontender back Neurologic: Alert and oriented ?3, CLEARANCE COORDINATOR is normal as tested, no gross motor deficit Course Reevaluation(s) Reevaluation #1: Feeling comfortable, after IV fluid and Dilaudid. Waiting for CAT scan report Date: 03/16/23 Time: 18:31 Consultations Consultation #1: Dr. Will. Patient can go home, follow-up with Dr. Castelan as a scheduled. As long no gut strangulation, patient will be okay to go home. Date: 03/16/23 Time: 19:27 Vital Signs Vital signs: Vital Signs Temperature 36.5 C 03/16/23 15:08 Pulse Rate 103 H 03/16/23 15:08 Respiratory Rate 16 03/16/23 15:08 Blood Pressure 161/100 H 03/16/23 15:08 Pulse Oximetry 100 03/16/23 15:08 Oxygen Delivery Room Air 03/16/23 15:08 Temperature 36.5 C 03/16/23 15:08 Pulse Rate 103 H 03/16/23 15:08 Respiratory Rate 16 03/16/23 15:08 Blood Pressure 161/100 H 03/16/23 15:08 Pulse Oximetry 100 03/16/23 15:08 Oxygen Delivery Room Air
[2023-03-16] MEDS: SODIUM CHLORIDE 0.9% IV 1,000 ML 999 ML IV CONT (16:52)
[2023-03-16] MEDS: ONDANSETRON INJ 4 MG/2 ML VIAL IV PUSH (16:53)
[2023-03-16] MEDS: HYDROmorphone HCL INJ (*CRX) 1 MG/ML SYR 0.5 MG IV PUSH (16:53)
[2023-03-16 17:01] LABS: Basophils Percent Auto 0.6 % (0.2-1.2); Eosinophils Absolute Auto 0.3 K/mm3 (0-0.3); Eosinophils Percent Auto 4.7 % (0-4.4); Hematocrit 45.2 % (42.0-52.0); Hemoglobin 14.6 g/dL (14.0-18.0); Immature Granulocyte Absolute 0.05 K/mm3 (0.00-0.031); Immature Granulocyte Percent A 0.7 % (0-0.5); Lymphocytes Absolute Auto 2.46 K/mm3 (0.9-3.2); Lymphocytes Percent Auto 34.7 % (18.3-44.2); Mean Corpuscular HGB Conc 32.3 g/dl (32-36); Mean Corpuscular Hemoglobin 29.2 pg (26-34); Mean Corpuscular Volume 90.4 fl (80-100); Monocytes Absolute Auto 0.6 K/mm3 (0.1-0.6); Monocytes Percent Auto 7.9 % (2.6-8.5); Neutrophils Absolute Auto 3.6 K/mm3 (1.3-6.7); Neutrophils Percent Auto 51.4 % (45.5-73.1); Platelet Count Result 306 k/mm3 (150-375); Red Cell Distribution Width 14.6 % (11.5-14.5); White Blood Count 7.1 K/mm3 (4.5-10.0)
[2023-03-16 17:12] LABS: Alanine Aminotransferase 25 U/L (6-50); Albumin Level 4.4 g/dL (3.5-5.1); Alkaline Phosphatase 63 U/L (38-126); Anion Gap 5 mmol/L (8-16); Aspartate Amino Transferase 29 U/L (17-59); Bilirubin,Total 0.4 mg/dL (0.2-1.3); Blood Urea Nitrogen 15 mg/dL (9-20); Calcium 9.1 mg/dL (8.4-10.2); Carbon Dioxide 30 mmol/L (22-30); Chloride 98 mmol/L (98-107); Estimated CRCL calculation 65 ml/min; Estimated Glomerular Filt Rate 54; Glucose 89 mg/dL (65-110); Lipase 51 U/L (23-300); Potassium 4.2 mmol/L (3.4-5.0); Sodium 133 mmol/L (137-145)
[2023-03-16 17:32] LABS: Appearance Urine Clear (Clear); Bacteria Urine None Seen /hpf; Bilirubin Urine Negative (Negative); Blood Urine Negative (Negative); Color Urine Yellow (Yellow); Glucose Urine UA Negative (Negative); Ketones Urine Negative (Negative); Leukocyte Esterase Ur Negative LEU/UL (Negative); Nitrate Urine Negative (Negative); Non Pathogenic Casts 0-2; Protein Urine Trace mg/dL (Negative); RBC Urine 0-2 /hpf (0-2); Specific Grav Ur 1.021 (1.001-1.035); Squamous Epithelial Cell Urine None seen /hpf (Few); Urobilinogen Urine 0.2 mg/dL (<2.0); WBC Urine 0-5 /hpf
[2023-03-16 17:45] LABS: Add Urine Microscopic? YES
== END 2023-03-16 19:50 | disposition home or self-care (01) ==
PROVIDERS: Emergency Provider Emergency Medicine; PCP Family Medicine
DX: K40.90 Unilateral inguinal hernia, without obstruction or gangrene, not specified as recurrent (principal); I10 Essential (primary) hypertension; E78.5 Hyperlipidemia, unspecified; G47.30 Sleep apnea, unspecified; M10.9 Gout, unspecified; F41.9 Anxiety disorder, unspecified; F31.9 Bipolar disorder, unspecified; Z85.528 Personal history of other malignant neoplasm of kidney; Z86.14 Personal history of Methicillin resistant Staphylococcus aureus infection; Z90.5 Acquired absence of kidney
CPT/HCPCS: 36415; 74177; 80053; 81001; 83690; 85025; 96361; 96374; 96375; 99284; J1170; J2405; J7030; Q9967

== ENCOUNTER 2023-04-15 01:57 | Day surgery (SDC) | payer OTHER, SELFPAY ==
[2023-04-13 14:19] VITALS: BMI 34.5
--- NOTE | 2023-04-13 14:43 | PC.NURSE ---
Report to the Outpatient Waiting Room, entrance under the green pavilion located off [facility], at time 1200 on date _04/15/23. Planned Procedure Time: 1400_. Time changes happen often and if your time is changed the preop area will call you the afternoon before. - You and your visitor will be asked to self-screen and do not enter if you have any COVID symptoms. - A mask is optional within the hospital at this time. Patients may have clear liquids (water, carbonated beverages, clear teas, apple juice) until 3 hours prior to surgery with a maximum of 20 ounces. - No food from midnight until time of surgery - Infants may have breast milk until 4 hours before surgery, formula 6 hours prior to surgery. - Children will be allowed to drink immediately following surgery. If applicable, please bring a bottle or sippy cup to assist with drinking. Juice, water, soda, and popsicles are readily available. For infants on formula, please bring formula the day of surgery. Pacifiers are allowed. Take the following medications with a SIP of water the morning of surgery: _Alprazolam DO NOT STOP ANY OF YOUR OTHER PRESCRIPTION MEDICATIONS PRIOR TO SURGERY ?EXCEPT THE FOLLOWING Medications to discontinue per physician ___n/a Date to take last dose Please no make-up, nail syrian, hairspray, perfume, deodorant, or body powder the day of surgery. No jewelry (including any body piercings) or valuables the day of surgery, leave them at home. Please take a shower or bath the night before, or the morning of, surgery with an antibacterial soap. Wear comfortable, loose fitting clothing. Children are encouraged to wear pajamas. - Jewelry must be removed prior to entering the operating room. Rings and piercings that are not removed may be cut off. - The hospital will not accept responsibility for valuables. - Please leave all valuables, including medications, at home the day of surgery. If you are going home after surgery, a licensed company truck driver must drive you home. - NO public transportation without another adult if you receive anesthesia. - We recommend that an adult stay with you for 24 hours following discharge. - We also recommend that you do not drive, make important decision, drink alcoholic beverages, or take any drugs that were not prescribed by your health care provider for at least 24 hours after your discharge time. For Pediatric surgeries, we recommend two adults accompany the child home. Follow any additional instructions given to you from your surgeon. If you or anyone in your household have experienced Covid symptoms in the past week, please notify your surgeon or the nurse liaison at the phone number below for possible testing. Telephone instructions given to Raúl Macias and asked if any additional questions and then verbalized understanding. Patient advised to call surgeon office or pre surgery nurse liaison [phone] if any additional questions.
[2023-04-15] VITALS (15 sets, daily range): BP systolic 123–167; BP diastolic 90–109; PULSE 87–109; RESP 12–16; TEMP 36.2–36.9; O2SAT 95–100
--- NOTE | 2023-04-15 12:04 | ECG_ITS ---
Measurements Intervals Bracey Rate: 83 P: -2 WV: 147 QRS: 20 QRSD: 103 T: 20 QT: 357 QTc: 422 Interpretive Statements SINUS RHYTHM DELAYED PRECORDIAL R/S TRANSITION BORDERLINE ECG COMPARED TO ECG 01/26/2020 22:17:36 SINUS RHYTHM NOW PRESENT Electronically Signed On 04-15-2023 14:24:53 CDT by Narinder Llanos D.O.
[2023-04-15] MEDS: ACETAMINOPHEN 500 MG TABLET 1000 MG PO (12:25)
[2023-04-15] MEDS: LACTATED RINGERS 1,000 ML 30 ML IV CONT ×3 (12:35→17:48)
[2023-04-15] MEDS: KETOROLAC 15 MG/ML VIAL (*BKC) IV PUSH (12:38)
[2023-04-15] MEDS: MIDAZOLAM HCL (*CRX) 2 MG/2 ML VIAL IV PUSH (12:57)
--- NOTE | 2023-04-15 13:08 | SUR.PREOP ---
Patient arrived complaing of much pain RLQ abd. Very anxious and guarded. Abd soft, left groin soft. Denied any relief from tylenol and toradol. Discussed with Dr Casarez and gave midazolam. Patient now sleeping and appears much more comfortable.
--- NOTE | 2023-04-15 13:44 | WPDHPUPDATE1 ---
History and Physical Update Update Date/Time: 04/15/23 13:44 History and Physical has been reviewed, including an updated exam of the patient. There are NO changes in the patient's condition. Risks, benefits, and alternatives have been discussed and questions answered. Patient agrees to proceed with procedure.
--- NOTE | 2023-04-15 13:48 | WPDANESEPPF ---
Anes - Initial Pre Proc Eval Procedure: Operation Date: 04/15/23 14:00 Proposed Procedures p Robotic Assisted Bilateral Inguinal Hernia Repair with Mesh - Tiara Foster MD Date/Time: 04/15/23 13:48 Surgeon: Tiara Foster MD Pre Op Diagnosis: bilateral inguinal hernias Patient Data Age: 47 Gender: M Height: 1.7 m Weight: 97.6 kg Last Vital Signs Temp 36.9 C 04/15/23 12:50 Pulse 97 04/15/23 12:50 Resp 16 04/15/23 12:50 BP 159/109 H 04/15/23 12:50 Pulse Ox 100 04/15/23 12:50 O2 Del Method Room Air 04/15/23 12:50 Allergies Allergy/AdvReac Type Severity Reaction Status Date / Time pantoprazole Allergy Severe Anaphylactic Verified 04/15/23 12:12 Shock Home Medications Medication Instructions Recorded Confirmed Type alprazolam 1 mg tablet 1 mg PO TID 01/17/20 04/13/23 History dextroamphetamine-amphetamine 30 30 mg PO BID 01/17/20 04/13/23 History mg tablet sumatriptan succinate 100 mg tablet 100 mg PO DAILY PRN Headache 01/17/20 04/13/23 History hydrocodone 10 mg-acetaminophen 1 tablet PO DAILY PRN Pain (Scale 04/13/23 04/13/23 History 325 mg tablet Score 7-10) lisinopril 20 mg tablet 20 mg PO DAILY 04/13/23 04/13/23 History docusate sodium 100 mg capsule 100 mg PO BID #30 caps 04/15/23 Rx (Colace) hydrocodone 10 mg-acetaminophen 1 tablet PO Q6H PRN pain #30 tabs 04/15/23 Rx 325 mg tablet Laboratory Tests 04/15/23 12:36 Blood Type Pending Antibody Screen Pending Patient hx anesthesia problems: other (difficult to sedate) Family hx anesthesia problems: none Results Review: All pre-operative results and documents have been reviewed as part of the pre-operative evaluation. [facility]LY [facility] Past Medical History Medical History Anxiety Back injury Bipolar disorder Cellulitis Chronic back pain Diverticulitis Gout HTN (hypertension) Hyperlipidemia Migraine MRSA (methicillin resistant Staphylococcus aureus) Renal cell carcinoma Sleep apnea Turf toe Uses continuous positive airway pressure (CPAP) ventilation at home Surgical History Surgical History H/O right nephrectomy History of foot surgery Left Social History Social History Smoking status: Never smoker Second hand tobacco smoke exposure: Yes Alcohol intake: never Substance use: never Substance use type: does not use Living arrangements: with family Gender identity (if verbalized by the patient): Male Spiritual care concerns: No Anes - Eval Final PreProcedure Day of Procedure 04/15/23 13:48 Patient weight: obese Heart: regular rate and rhythm Lungs: clear to auscultation Airway: Mallampati scale class II Neurological: alert and oriented Last oral intake: >/= 8 hours ASA classification: III Emergent: no Anesthetic plan: proceed Anesthesia type and monitoring: general ETT and standard monitoring Results Review: All pre-operative results and documents have been reviewed as part of the pre-operative evaluation. Informed Consent: The patient's anesthetic plan and its attendant risks and benefits were discussed with the patient/family/POA. Questions were solicited and answers provided to the satisfaction of the patient/family/POA.
[2023-04-15] MEDS: ceFAZolin 2 GM/D5W 50 ML 2 GM/50 ML BAG IVPB (14:02)
[2023-04-15] MEDS: BUPIVACAINE/EPINEPHRINE 0.5% 50 ML VIAL INFILTRATE (14:58)
--- NOTE | 2023-04-15 16:08 | W.PM.PROC2 ---
Procedure Note - Detailed Date of Procedure 04/15/23 Pre-op Diagnosis bilateral inguinal hernias Post-op Diagnosis Other (right indirect inguinal hernia, left incarcerated indirect hernia) Procedure Performed robotic assisted bilateral inguinal hernia repair with mesh Surgeon Tiara Foster MD Anesthesia General Indications Pt is a 47 y/o M presenting c few mo h/o bulging, discomfort in predominately L groin. Pt reports recently c discomfort in R groin as well, but no bulging noted. Workup significant for bilateral inguinal hernias. Findings R indirect hernia, L incarcerated indirect hernia with sigmoid colon Description of Procedure Patient was brought into the operating room and placed in the supine position. After adequate induction of general anesthesia, the patient was prepped and draped in normal sterile fashion. A time-out was then done to verify the patient's identity, as well as the procedure being performed. I began by making a 8 mm incision in the supraumbilical region, a Veress needle was then placed into the peritoneal cavity. CO2 gas was then insufflated and after adequate pneumoperitoneum was achieved, the Veress needle was removed. I then placed an 8 mm trocar through this incision. I then placed the endoscope through this trocar site and under direct visualization placed 2 further 8 mm ports in the right and left mid abdomen. The [employer] robot was then docked to the 3 trocar sites. I then scrubbed out and went to the robotic console. Upon examining the pelvis, it was noted that the patient had a moderate sized right inguinal hernia. The left side was examined and a larger incarcerated hernia defect was noted. The left side was incarcerated with sigmoid colon and this was gently reduced with both blunt and sharp dissection. I began by making a preperitoneal flap approximately 6 cm superior to the right sided defect. This flap was carried medially past the umbilical ligaments and laterally to the transversalis. It then began dissection of my medial compartment taking this down to the pubic tubercle. I then began the lateral dissection taking this down to the transversalis fascia. Once these compartments were achieved, I began dissection around the cord structures. A moderate sized indirect hernia was noted at this point. Using careful dissection, was able to reduce indirect hernia sac off the cord structures. Once this was adequately done, I went ahead and placed a large piece of 3D Max mesh into the abdominal cavity. The mesh was carefully positioned, centering the center of the mesh over the indirect defect. Once this was done, was very satisfied with our repair. Using 3-0 Vicryl sutures, I tacked the mesh medially to Josias's ligament. Two lateral sutures were placed from the mesh to the transversalis fascia. I then began on the left side by making a preperitoneal flap approximately 6 cm superior to the left sided defect. This flap was carried medially past the umbilical ligaments and laterally to the transversalis. It then began dissection of my medial compartment taking this down to the pubic tubercle. I then began the lateral dissection taking this down to the transversalis fascia. Once these compartments were achieved, I began dissection around the cord structures. A large indirect hernia was noted at this point. Using careful dissection, was able to reduce indirect hernia sac off the cord structures. Once this was adequately done, I went ahead and placed a large piece of 3D Max mesh into the abdominal cavity. The mesh was carefully positioned, centering the center of the mesh over the indirect defect. Once this was done, was very satisfied with our repair. Using 3-0 Vicryl sutures, I tacked the mesh medially to Josias's ligament. Two lateral sutures were placed from the mesh to the transversalis fascia.I then closed the peritoneal flap bilaterally with running 2.0 V Lock suture x 2. The abdomen was then desufflated,
[2023-04-15] MEDS: oxyCODONE HCL (*CRX) 5 MG TAB IR PO (17:27)
[2023-04-15] MEDS: fentaNYL CITRATE INJ (*CRX) 100 MCG/2 ML VIAL 25 MCG IV PUSH ×4 (17:40→17:53)
--- NOTE | 2023-04-15 18:05 | SUR.PHASEII ---
1800- Call to Dr. Foster per patient's request. Patient reporting abdominal pain at an 8 on numeric scale after pain medications given and icing site. Patient stating he would like to be admitted overnight. Patient voicing concerns with going home with current pain level and reports long drive home of [address] Foster he will admit patient overnight for observation and orders given to this RN- see orders placed. 1805- Patient and , [place] notified he will be admitted overnight and Raúl agreeable with plan of care.
--- NOTE | 2023-04-15 18:58 | ADMGEN ---
This patient, Raúl Macias, was admitted to Medical Room 250-01. Patient/family oriented to hospital policies and general routines including ID bracelet, bed and alarms, visiting hours, pain management, procedures, bathroom and other care routines, personal items, smoking policy, room service/diet, and visiting hours. Information on how to activate the Rapid Response Team has been discussed. Patient/Family are encouraged to report perceived risks to care and to ask questions if they do not understand what they are told or what they should do.
[2023-04-15] MEDS: MORPHINE SULFATE (*CRX) 4 MG/ML INJ IV PUSH (20:50)
[2023-04-15] MEDS: DOCUSATE SODIUM 100 MG CAPSULE PO (20:50)
[2023-04-16 00:28] VITALS: BP 153/105; PULSE 107; RESP 16; TEMP 36.6; O2SAT 97
[2023-04-16] MEDS: oxyCODONE HCL (*CRX) 5 MG TAB IR 10 MG PO ×2 (04:00→10:08)
[2023-04-16 06:14] VITALS: BP 140/102; PULSE 109; RESP 16; TEMP 36.9; O2SAT 100
[2023-04-16 10:00] VITALS: BP 158/92; PULSE 108; RESP 16; TEMP 37; O2SAT 100
[2023-04-16] MEDS: ALPRAZolam (*CRX) 0.5 MG TABLET 1 MG PO (10:07)
[2023-04-16] MEDS: DOCUSATE SODIUM 100 MG CAPSULE PO (10:07)
[2023-04-16] MEDS: lisinopriL 20 MG TABLET PO (10:07)
--- NOTE | 2023-04-16 12:33 | WPDANESPN ---
Anes - Prog Note Post-Op Date/Time: 04/16/23 12:33 Cardiovascular status: normal Respiratory status: normal Airway patency: baseline Mental status: baseline Post-Op hydration status: normal Vital Signs: Last Vital Signs Temp 37.0 C 04/16/23 10:00 Pulse 108 H 04/16/23 10:00 Resp 16 04/16/23 10:00 BP 158/92 H 04/16/23 10:00 Pulse Ox 100 04/16/23 10:00 O2 Del Method Room Air 04/16/23 10:15 O2 Flow Rate 8 04/15/23 16:50 Pain Score (VAS): 3/10 I/O: Intake & Output 04/15/23 04/16/23 04/16/23 23:59 07:59 15:59 Intake Total 1300 550 920 Balance 1300 550 920 04/15/23 12:36 Blood Type O Positive Antibody Screen Negative Post-procedural complaints: none Patient Feedback: Patient satisfied with anesthetic care.
== END 2023-04-16 12:50 | disposition home or self-care (01) ==
LOC: ANHSURGERY 16:59 → ANH2MED 04-16 08:53
PROVIDERS: PCP Family Medicine; Visit Provider Surgery
PROC: 8E0Y4CZ Robotic Assisted Procedure of Lower Extremity, Percutaneous Endoscopic Approach (ICD-10-PCS; CPT 49650; principal; 2023-04-15 14:00)
DX: K40.30 Unilateral inguinal hernia, with obstruction, without gangrene, not specified as recurrent (principal); K40.20 Bilateral inguinal hernia, without obstruction or gangrene, not specified as recurrent; I10 Essential (primary) hypertension; G47.33 Obstructive sleep apnea (adult) (pediatric); F31.9 Bipolar disorder, unspecified; F41.9 Anxiety disorder, unspecified; G89.29 Other chronic pain; M54.9 Dorsalgia, unspecified; Z79.891 Long term (current) use of opiate analgesic; Z85.528 Personal history of other malignant neoplasm of kidney; Z90.5 Acquired absence of kidney; E66.9 Obesity, unspecified; Z68.33 Body mass index [BMI] 33.0-33.9, adult
CPT/HCPCS: 49650; S2900; 36415; 86850; 86900; 86901; 93005; A9270; C1781; J0690; J1100; J1170; J1885; J2250; J2270; J2371; J2405; J2704; J3010; J7120

== ENCOUNTER 2023-05-16 19:13 | Emergency (ER) | payer OTHER, SELFPAY ==
--- NOTE | ~2023-05-16 | US_ITS ---
EXAMINATION: US scrotum doppler DATE: 05/16/2023 20:52 INDICATION: Testicular pain . Recent bilateral inguinal hernia repair. TECHNIQUE: Grayscale and Doppler ultrasound images of the testes were obtained. COMPARISON: 03/16/2023. FINDINGS: The right testis measures 5.1 x 2.8 x 3.5 cm. The left testis measures 4.4 x 2.7 x 3.1 cm. And 6.5 x 4.2 x 3.5 cm echogenic masslike structure in the left scrotum which displaces normal scrota l contents. There is normal vascular flow to both testes. The right epididymis is normal with normal vascular flow. The left epididymis is displaced/not visualized. There is no varicocele. Trace left hy drocele. IMPRESSION: 6.5 cm fat-containing left inguinal hernia. Reviewed, dictated and finalized at location K.
--- NOTE | ~2023-05-16 | CT_ITS ---
EXAMINATION: CT abdomen pelvis wo con DATE: 05/17/2023 00:01 INDICATION: Low abdominal pain. TECHNIQUE: Computed tomography (CT) of the abdomen and pelvis was performed without intravenous contr ast. Automated exposure control and iterative reconstruction technique were employed. The dose-length product was 1372.73 mGy-cm. COMPARISON: CT abdomen and pelvis 03/16/2023 FINDINGS: The visualized portions of the lung bases posteriorly mild atelectasis. No pleural effusion . The heart size is normal. No pericardial effusion. There is diffuse hepatic steatosis. The gallblad clarissa, spleen, pancreas, and adrenal glands are normal. There are changes of right nephrectomy. Left ki dney is normal. There is prominent fat in the inguinal canals, left worse than right. There are morton es of bilateral inguinal hernia repairs. There is a 3.4 x 1.9 x 4.6 cm fluid collection near the mesh at the midline. There is a 3.1 x 1.8 cm mass in the area of the mesh on the left. There is diverticu losis of the colon without evidence of diverticulitis. The appendix is normal. There are no dilated l oops of bowel. There are no pathologically enlarged lymph nodes. There is no free intraperitoneal flu id. There is mild thoracic spondylosis and severe lower lumbar spondylosis. IMPRESSION: 1. Interval changes of bilateral inguinal hernia repairs. Fluid collection in the area of the mesh at the midline, which may be a seroma, hematoma, or abscess. Mass in the area of the mesh on the left, which may be hematoma or abscess. Reviewed, dictated and finalized at location A. IMPRESSION: 1. Interval changes of bilateral inguinal hernia repairs. Fluid collection in t he area of the mesh at the midline, which may be a seroma, hematoma, or abscess . Mass in the area of the mesh on the left, which may be hematoma or abscess.
[2023-05-16 19:21] VITALS: BP 143/101; PULSE 115; RESP 18; TEMP 36.6; O2SAT 98
--- NOTE | 2023-05-16 19:36 | PC.NURSE ---
US called in for patient to rule out torsion.
--- NOTE | 2023-05-16 20:18 | PC.NURSE ---
Patient being taken to US via w/c from waiting room.
--- NOTE | 2023-05-16 22:36 | ED.GENADULT ---
HPI - General Adult General Chief complaint: Urogenital-Male Stated complaint: testical pain, post op? Time Seen by Provider: 05/16/23 22:07 History of Present Illness HPI narrative: 48-year-old male present to the emergency department for evaluation of worsening left-sided groin and testicular pain. Patient did have recent bilateral inguinal hernia repair on 04/16. Patient reports he has had persistent tenderness since the surgery but states over the course of the last week he feels that the pain and tenderness has increased. Patient does describe left groin pain and left testicular pain. Patient did have some associated nausea without vomiting. Related Data Home Medications Medication Instructions Recorded Confirmed alprazolam 1 mg tablet 1 mg PO TID 01/17/20 05/12/23 dextroamphetamine-amphetamine 30 30 mg PO BID 01/17/20 05/12/23 mg tablet sumatriptan succinate 100 mg tablet 100 mg PO DAILY PRN Headache 01/17/20 05/12/23 lisinopril 20 mg tablet 20 mg PO DAILY 04/13/23 05/12/23 Allergies Allergy/AdvReac Type Severity Reaction Status Date / Time pantoprazole Allergy Severe Anaphylactic Verified 05/12/23 09:32 Shock Review of Systems Review of Systems: All systems reviewed & are unremarkable except as noted in HPI and below PMFSH Past Medical History Medical History Anxiety Back injury Bipolar disorder Cellulitis Chronic back pain Diverticulitis Gout HTN (hypertension) Hyperlipidemia Migraine MRSA (methicillin resistant Staphylococcus aureus) Renal cell carcinoma Sleep apnea Turf toe Uses continuous positive airway pressure (CPAP) ventilation at home Surgical History Surgical History H/O bilateral inguinal hernia repair Robotic assist BIH repair with mesh 04/09/[address] Foster. H/O right nephrectomy History of foot surgery Left Social History Social History Smoking status: Never smoker Second hand tobacco smoke exposure: Yes Alcohol intake: never Substance use: never Substance use type: does not use Lack of Transportation: No Lack of Food: Never True Current Housing: I Have Housing Concerned About Future Housing: No Difficulty Paying Gas/Electric Bills: No Difficulty Paying for Meds: No Currently Unemployed: No Education: Don't Know Difficulty w/ Childcare or Family Care: No Living arrangements: with family Gender identity (if verbalized by the patient): Male Spiritual care concerns: No Exam Narrative: APPEARANCE: Well appearing, no pain, no distress, well-nourished. HEAD: normocephalic, atraumatic. EYES: PERRLA/EOMI, conjunctivae clear. NOSE: Normal no drainage EARS:TMS clear with good light reflex. THROAT: Pharynx clear, no exudate. NECK: Supple. No adenopathy, no masses. RESPIRATORY: Airway patent, respirations nonlabored. Clear to auscultation bilaterally, no rales, rhonchi, wheezing. CARDIOVASCULAR: Regular rate and rhythm without murmurs rubs or gallops. ABDOMINAL: Left groin tenderness with no overlying erythema MUSCULOSKELETAL: Moves all extremities. Strength/ROM intact, No edema, No calf tenderness. NEURO: Alert. Cranial nerves II through XII intact. Grossly intact Course Course Emergency Course: 48-year-old male presented ED for evaluation of left ocular pain. Ultrasound was ordered to rule out torsion and showed no evidence of torsion with adequate blood flow to both testicles. Ultrasound was concerning for a mass inside the scrotum. CT scan showed left inguinal canal hematoma along with a hematoma adjacent to the bladder. Case was discussed with surgery and they were comfortable with the patient having outpatient follow-up. Patient was also encouraged to have outpatient follow-up with urology due to the scrotal mass. Patient was updated on the results of the imaging whitten
[2023-05-16 23:06] LABS: Basophils Absolute Auto 0.1 K/mm3 (0.0-0.1); Basophils Percent Auto 0.7 % (0.2-1.2); Eosinophils Absolute Auto 0.4 K/mm3 (0-0.3); Eosinophils Percent Auto 4.5 % (0-4.4); Hematocrit 45.3 % (42.0-52.0); Hemoglobin 14.2 g/dL (14.0-18.0); Immature Granulocyte Absolute 0.06 K/mm3 (0.00-0.031); Immature Granulocyte Percent A 0.7 % (0-0.5); Lymphocytes Absolute Auto 2.78 K/mm3 (0.9-3.2); Lymphocytes Percent Auto 33.9 % (18.3-44.2); Mean Corpuscular HGB Conc 31.3 g/dl (32-36); Mean Corpuscular Hemoglobin 29.2 pg (26-34); Mean Platelet Volume 8.4 fl (7.4-10.4); Monocytes Absolute Auto 0.8 K/mm3 (0.1-0.6); Monocytes Percent Auto 9.1 % (2.6-8.5); Neutrophils Absolute Auto 4.2 K/mm3 (1.3-6.7); Neutrophils Percent Auto 51.1 % (45.5-73.1); Platelet Count Result 272 k/mm3 (150-375); Red Blood Count 4.87 M/mm3 (4.6-6.20); Red Cell Distribution Width 14.3 % (11.5-14.5); White Blood Count 8.2 K/mm3 (4.5-10.0)
[2023-05-16 23:10] LABS: Appearance Urine Clear (Clear); Bilirubin Urine Negative (Negative); Blood Urine Negative (Negative); Color Urine Yellow (Yellow); Glucose Urine UA Negative (Negative); Ketones Urine Negative (Negative); Leukocyte Esterase Ur Negative LEU/UL (Negative); Nitrate Urine Negative (Negative); Protein Urine Negative (Negative); Urobilinogen Urine 0.2 mg/dL (<2.0); pH Urine 5.5 (5.0-9.0)
[2023-05-16 23:11] LABS: Add Urine Microscopic? NO
[2023-05-16 23:54] LABS: Alanine Aminotransferase 22 U/L (6-50); Albumin Level 4.2 g/dL (3.5-5.1); Alkaline Phosphatase 78 U/L (38-126); Anion Gap 6 mmol/L (8-16); Aspartate Amino Transferase 26 U/L (17-59); Bilirubin,Total 0.5 mg/dL (0.2-1.3); Blood Urea Nitrogen 20 mg/dL (9-20); Calcium 9.4 mg/dL (8.4-10.2); Carbon Dioxide 33 mmol/L (22-30); Chloride 97 mmol/L (98-107); Estimated CRCL calculation 60 ml/min; Estimated Glomerular Filt Rate 50; Glucose 108 mg/dL (65-110); Potassium 4.4 mmol/L (3.4-5.0); Sodium 136 mmol/L (137-145)
[2023-05-16 23:55] LABS: Prothrombin Time 13.1 Seconds (11.1-14.7)
[2023-05-16 23:56] LABS: Partial Thromboplastin Time 31.4 SECONDS (22.3-36.8)
[2023-05-17] MEDS: HYDROcodone/acetaminophen (*CRX) 10-325 MG TABLET 1 TAB PO (00:10)
[2023-05-17 00:14] VITALS: PULSE 94; RESP 20; O2SAT 100
[2023-05-17 00:30] VITALS: BP 148/99; PULSE 97; RESP 18; O2SAT 100
[2023-05-17] MEDS: HYDROmorphone HCL INJ (*CRX) 1 MG/ML SYR IM (00:47)
[2023-05-17 01:00] VITALS: BP 156/89; PULSE 84; RESP 18; O2SAT 99
[2023-05-17 06:00] VITALS: BP 156/89; PULSE 95; RESP 18; O2SAT 99
== END 2023-05-17 06:06 | disposition home or self-care (01) ==
PROVIDERS: Emergency Provider Emergency Medicine; PCP Family Medicine
DX: N99.840 Postprocedural hematoma of a genitourinary system organ or structure following a genitourinary system procedure (principal); N50.89 Other specified disorders of the male genital organs; I10 Essential (primary) hypertension; E78.5 Hyperlipidemia, unspecified; M10.9 Gout, unspecified; G47.30 Sleep apnea, unspecified; F41.9 Anxiety disorder, unspecified; F31.9 Bipolar disorder, unspecified; Z86.14 Personal history of Methicillin resistant Staphylococcus aureus infection; Z85.528 Personal history of other malignant neoplasm of kidney; Z90.5 Acquired absence of kidney; Y83.8 Other surgical procedures as the cause of abnormal reaction of the patient, or of later complication, without mention of misadventure at the time of the procedure; K40.90 Unilateral inguinal hernia, without obstruction or gangrene, not specified as recurrent
CPT/HCPCS: 36415; 74176; 76870; 80053; 81003; 85025; 85610; 85730; 93976; 96372; 99284; A9270; J1170

== ENCOUNTER 2023-08-27 17:29 | Emergency (ER) | payer OTHER, SELFPAY ==
[2023-08-27 17:38] VITALS: BP 175/115; PULSE 91; RESP 16; TEMP 36.1; O2SAT 99
--- NOTE | 2023-08-27 17:38 | ED.SKABFB ---
HPI - Skin/Abscess/Foreign Bdy General Chief complaint: Skin/Abscess/Foreign Body Stated complaint: Rash Time Seen by Provider: 08/27/23 17:48 Source: patient and RN notes reviewed Mode of arrival: ambulatory Limitations: no limitations History of Present Illness HPI narrative: 48-year-old male presents with concern for a rash. Reports a painful rash on his chest and another area on his back. Reports he noticed it started 2 days ago. He reports mild general body aches. MD complaint: rash Related Data Home Medications Medication Instructions Recorded Confirmed alprazolam 1 mg tablet 1 mg PO TID 01/17/20 05/12/23 dextroamphetamine-amphetamine 30 30 mg PO BID 01/17/20 05/12/23 mg tablet sumatriptan succinate 100 mg tablet 100 mg PO DAILY PRN Headache 01/17/20 05/12/23 lisinopril 20 mg tablet 20 mg PO DAILY 04/13/23 05/12/23 Allergies Allergy/AdvReac Type Severity Reaction Status Date / Time pantoprazole Allergy Severe Anaphylactic Verified 05/12/23 09:32 Shock Review of Systems Review of Systems: CONSTITUTIONAL: Denies malaise, chills, sweats, or fever. EYES: Denies redness, or discharge. ENT: Denies rhinorrhea, congestion, swollen lips, swollen tongue CARDIOVASCULAR: Denies chest pain, palpitations, or edema. RESPIRATORY: Denies cough or dyspnea. GASTROINTESTINAL: Denies abdominal pain, nausea, vomiting SKIN: Reports pain rash on his chest and back MUSCULOSKELETAL: Denies joint pain. Reports mild myalgia. NEUROLOGIC: Denies headache. All systems reviewed & are unremarkable except as noted in HPI and below PMFSH Past Medical History Medical History Anxiety Back injury Bipolar disorder Cellulitis Chronic back pain Diverticulitis Gout HTN (hypertension) Hyperlipidemia Migraine MRSA (methicillin resistant Staphylococcus aureus) Renal cell carcinoma Sleep apnea Turf toe Uses continuous positive airway pressure (CPAP) ventilation at home Surgical History Surgical History H/O bilateral inguinal hernia repair Robotic assist BIH repair with mesh 04/09/[address] Foster. H/O right nephrectomy History of foot surgery Left Social History Social History Smoking status: Never smoker Second hand tobacco smoke exposure: Yes Alcohol intake: never Substance use: never Substance use type: does not use Lack of Transportation: No Lack of Food: Never True Current Housing: I Have Housing Concerned About Future Housing: No Difficulty Paying Gas/Electric Bills: No Difficulty Paying for Meds: No Currently Unemployed: No Education: Don't Know Difficulty w/ Childcare or Family Care: No Living arrangements: with family Gender identity (if verbalized by the patient): Male Spiritual care concerns: No Comments At time of signature, agree with nursing past medical, surgical, social and family history. There is no relevant family history pertinent to the presenting complaint Exam Narrative: GENERAL: Well-appearing, well-nourished, and in no acute distress. HEAD: Normocephalic, atraumatic. EYES: PERRLA, conjunctivae clear, and EOMI. ENT: Mucous membranes moist. Oropharynx without edema, erythema or lesions. NECK: Supple. No lymphadenopathy CHEST: Clear to auscultation. No respiratory distress. HEART: Regular rate and rhythm. SKIN: Warm, dry. Zosteriform rash noted to the right anterior chest in the right mid back consistent with shingles NEURO: Alert and oriented x3. PSYCH: Normal mood and affect Course Course Emergency Course: Patient has history of renal cell carcinoma and left nephrectomy. Patient's last creatinine clearance was in May and was 60. However because I do not have a recent creatinine clearance I am decreasing his dose of acyclovir from 3 times a day to 2 times a day. Patient is spring
== END 2023-08-27 18:00 | disposition home or self-care (01) ==
PROVIDERS: Emergency Provider Nurse Practitioner; PCP Family Medicine
DX: B02.9 Zoster without complications (principal); M10.9 Gout, unspecified; I10 Essential (primary) hypertension; E78.5 Hyperlipidemia, unspecified; Z86.14 Personal history of Methicillin resistant Staphylococcus aureus infection; Z85.528 Personal history of other malignant neoplasm of kidney; Z90.5 Acquired absence of kidney; G47.30 Sleep apnea, unspecified; F41.9 Anxiety disorder, unspecified
CPT/HCPCS: 99213; G0463